=== PATIENT | female | born 1935 | race Caucasian/White ===

== ENCOUNTER 2018-02-07 14:53 | Emergency (ER) | payer MEDICARE, OTHER ==
--- NOTE | 2018-02-07 15:57 | ED Physician Documentation ---
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 Patient states she fell on Sunday, c/o continued pain. Has not taken any OTC medications [employer].) - ROS CONST: no problems CVS/RESP: none NEURO: none MS/SKIN/LYMPH: none GI/: denies: nausea, vomiting - PAST HX Past History: Rt handed, other (Breast CA) Allergies/Adverse Reactions: Allergies Allergy/AdvReac Type Severity Reaction Status Date / Time No Known Allergies Allergy Unverified 02/07/18 15:10 Home Medications: Ambulatory Orders Medication Instructions Recorded Ketorolac Tromethamine [Toradol] 10 mg PO TID #15 tablet 02/07/18 Letrozole [Femara] 2.5 mg PO 02/07/18 - SOCIAL HX Smoking History: non-smoker - FAMILY HX Family History: denies: none - VITAL SIGNS Vital Signs: Vital Signs Temp Pulse Resp BP Pulse Ox 98.2 F 80 16 128/67 99 02/07/18 14:57 02/07/18 16:10 02/07/18 16:10 02/07/18 16:10 02/07/18 16:10 - REVIEWED ASSESSMENTS Nursing Assessment Reviewed: Yes Vitals Reviewed: Yes Progress - Progress Progress: Wrist splint applied. ED Results Lab/Radiology - Radiology Radiology Impressions: Three views of the right wrist CLINICAL HISTORY: Fall on 02/03/2018. Worsening pain. FINDINGS: Examination of the right wrist in palmar, lateral and oblique views demonstrates degenerative changes with narrowing of the radiocarpal and lateral intercarpal joints. There is widening in the scapholunate space consistent with rotatory subluxation. There is no evident fracture and no lytic or blastic lesion. IMPRESSION: Degenerative changes. 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 Electronically signed on Feb 07, 2018 3:42:45 PM CDT by: Chirag Alcantar - Orders Orders: ED Orders Category Date Time Status Wrist Splint 1T Care 02/07/18 15:57 Active HAND 3 VIEWS OR MORE [RAD] Stat Exams 02/07/18 Completed WRIST 3 VIEWS OR MORE [RAD] Stat Exams 02/07/18 Completed Upper Extremity Injury Physic - Physical Exam General Appearance: mild distress Hand: normal inspection, non-tender, no evidence of injury, normal ROM Wrist: bone tenderness (scaphoid), ecchymosis (right), limited ROM (Unable to perform scaphoid shift test due to pain), soft tissue tenderness (proximal thumb ) Elbow/Forearm: normal inspection, non-tender, no evidence of injury, normal ROM Neuro/Vascular/Tendon: no vascular compromise, motor nml, sensation nml, ROM nml Skin: warm,dry Resp/CVS: no resp. distress Discharge Clincal Impression: Scapholunate instability of right wrist Sprain of wrist, right Qualifiers: Encounter type: initial encounter Qualified Code(s): S63.501A - Unspecified sprain of right wrist, initial encounter Prescriptions: Ketorolac Tromethamine [Toradol] 10 mg PO TID #15 tablet Additional Instructions: Ice Rest Elevation Wear your wrist splint at all time - you may remove to shower Follow up with ortho - make a follow up appointment with orthopedics. take you disc and report with you. Condition: Stable Disposition: 01 HOME, SELF-CARE Decision to Admit: NO Decision Time: 15:56
[2018-02-07 16:12] VITALS: BP 128/67
--- NOTE | 2018-02-07 18:06 | Diagnostic Imaging Report ---
[facility] [address] [facility].[address] 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 Worsening pain. FINDINGS: Examination of the right wrist in palmar, lateral and oblique views demonstrates degenerative changes with narrowing of the radiocarpal and lateral intercarpal joints. There is widening in the scapholunate space consistent with rotatory subluxation. There is no evident fracture and no lytic or blastic lesion. IMPRESSION: Degenerative changes. 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 Electronically signed on Feb 07, 2018 3:42:45 PM CDT by: Cihrag GIRON
--- NOTE | 2018-02-07 18:06 | Diagnostic Imaging Report ---
[facility] [address] [facility].[address] 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 FINDINGS: Examination right hand in palmar, lateral oblique views demonstrates extensive degenerative changes with narrowing of the interphalangeal joints worse distally. There are prominent osteophytes. 2nd metacarpophalangeal joint is narrowed with osteophyte formation. There is marked narrowing and sclerosis at the 1st carpometacarpal joint. There is no evident fracture and no lytic or blastic lesion. IMPRESSION: Extensive degenerative changes. No fracture. Electronically signed on Feb 07, 2018 3:44:21 PM CDT by: Chirag GIRON
== END 2018-02-07 16:07 | disposition home or self-care (01) ==
LOC: ED 14:53
DX: S63.501A Unspecified sprain of right wrist, initial encounter (principal); W00.9XXD Unspecified fall due to ice and snow, subsequent encounter; Y93.9 Activity, unspecified; Y92.9 Unspecified place or not applicable; W19.XXXA Unspecified fall, initial encounter
CPT/HCPCS: 73110; 73130; L3908; 99283